=== PATIENT | female | born 1970 | race Caucasian/White ===

== ENCOUNTER 2017-07-17 10:00 | Emergency (ER) | payer MEDICARE, MEDICAID | END 2017-07-17 12:35 | disposition home or self-care (01) | LOC: ERS 10:00 | DX: G40.909 Epilepsy, unspecified, not intractable, without status epilepticus (principal); F41.9 Anxiety disorder, unspecified; F32.9 Major depressive disorder, single episode, unspecified ==

== ENCOUNTER 2019-06-09 12:32 | Emergency (ER) | payer MEDICARE ==
[2019-06-09 14:15] LABS: #Basophils 0.1 thou/uL (0.0-0.2); #Eosinphils 0.1 thou/uL (0.0-0.7); #Lymphocytes 1.3 thou/uL (1.20-3.40); #Monocytes 0.4 thou/uL (0.11-0.59); #Neutrophils 3.1 thou/uL (1.40-6.50); %Basophils 1.2 % (0.0-1.0); %Eosinophils 2.2 % (0.0-10.0); %Lymphocytes 25.5 % (21.0-51.0); %Monocytes 8.5 % (0.0-10.0); %Neutrophils 62.7 % (42.0-75.0); Mean Corpuscular HGB CONC 33.5 g/dL (32.0-36.0); Mean Corpuscular Hemoglobin 28.2 pg (27.0-31.0); Mean Platelet Volume 7.8 fL (7.4-10.4); Platelet Count 150 thou/uL (130-400); RBC Distribution Width 12.1 % (11.5-14.5); Red Blood Cell (RBC) Count 4.61 mill/uL (4.20-5.40); White Blood Cell (WBC) Count 4.9 thou/uL (4.8-10.8)
[2019-06-09 14:38] LABS: ALT (SGPT) 16 U/L (8-55); AST (SGOT) 19 U/L (5-34); Albumin 4.2 g/dL (3.5-5.0); Alkaline Phosphatase 69 U/L (40-110); Anion Gap 12 mmol/L (10-20); BUN (Urea Nitrogen) 10 mg/dL (7.0-18.7); Bilirubin, Total 0.4 mg/dL (0.2-1.2); Calc. Creatinine Clearance 0 mL/min (70-130); Calcium 9.4 mg/dL (7.8-10.44); Carbon Dioxide 27 mmol/L (22-29); Chloride 109 mmol/L (98-107); Estimated GFR-MDRD 83; Globulin 2.7 g/dL (2.4-3.5); Glucose 95 mg/dL (70-105); Potassium 4.3 mmol/L (3.5-5.1); Protein, Total 6.9 g/dL (6.0-8.3); Sodium 144 mmol/L (136-145)
== END 2019-06-09 15:28 | disposition home or self-care (01) ==
LOC: ERS 12:32
DX: R56.9 Unspecified convulsions (principal); K21.9 Gastro-esophageal reflux disease without esophagitis; F41.9 Anxiety disorder, unspecified; F32.9 Major depressive disorder, single episode, unspecified; Z79.899 Other long term (current) drug therapy; Z86.718 Personal history of other venous thrombosis and embolism; Z79.01 Long term (current) use of anticoagulants; Z86.711 Personal history of pulmonary embolism
CPT/HCPCS: 36415; 80053; 80177; 85025; 99284

== ENCOUNTER 2019-11-29 21:24 | Inpatient (IN) | payer MEDICARE ==
--- NOTE | 2019-11-29 22:03 | RAD ---
Chest AP view INDICATION: Altered mental status and history of seizures COMPARISON: Prior chest radiograph dated December 04, 2017 and July 24, 2018. FINDINGS: Lungs: The lungs remain hyperinflated but clear. Cardiac silhouette: The cardiomediastinal silhouette appears within normal limits. Pulmonary vasculature: Normal Pleural spaces: No pleural effusion or pneumothorax is demonstrated. Upper abdomen: No abnormality seen. Osseous structures: No acute osseous abnormality. Additional findings: None. IMPRESSION: No acute cardiopulmonary abnormality.
[2019-11-29 22:15] LABS: #Lymphocytes 0.7 thou/uL (1.20-3.40); #Monocytes 0.3 thou/uL (0.11-0.59); #Neutrophils 7.4 thou/uL (1.40-6.50); %Basophils 0.2 % (0.0-1.0); %Eosinophils 0.2 % (0.0-10.0); %Lymphocytes 7.6 % (21.0-51.0); %Monocytes 3.9 % (0.0-10.0); Mean Corpuscular HGB CONC 33.2 g/dL (32.0-36.0); Mean Corpuscular Hemoglobin 28.6 pg (27.0-31.0); Mean Corpuscular Volume 86.2 fL (78.0-98.0); Mean Platelet Volume 7.9 fL (7.4-10.4); Platelet Count 163 thou/uL (130-400); RBC Distribution Width 12.4 % (11.5-14.5); Red Blood Cell (RBC) Count 4.89 mill/uL (4.20-5.40); White Blood Cell (WBC) Count 8.5 thou/uL (4.8-10.8)
[2019-11-29 22:39] LABS: ALT (SGPT) 61 U/L (8-55); AST (SGOT) 51 U/L (5-34); Acetaminophen Less than 6.0 mcg/mL (10.0-30.0); Albumin 4.2 g/dL (3.5-5.0); Alcohol Less than 10 mg/dL (Less than 10); Alkaline Phosphatase 89 U/L (40-110); Anion Gap 15 mmol/L (10-20); BUN (Urea Nitrogen) 15 mg/dL (7.0-18.7); Bilirubin, Total 0.7 mg/dL (0.2-1.2); Calc. Creatinine Clearance 0 mL/min (70-130); Calcium 9.3 mg/dL (7.8-10.44); Carbon Dioxide 20 mmol/L (22-29); Chloride 109 mmol/L (98-107); Estimated GFR-MDRD 82; Globulin 3.3 g/dL (2.4-3.5); Glucose 129 mg/dL (70-105); Lipase 45 U/L (8-78); Potassium 4.1 mmol/L (3.5-5.1); Protein, Total 7.5 g/dL (6.0-8.3); Salicylate Less than 8.0 mg/dL (15.0-30.0); Sodium 140 mmol/L (136-145)
[2019-11-29 22:42] LABS: Bacteria/HPF 3+ HPF (None Seen); Bilirubin Negative (Negative); Blood, Urine Negative (Negative); Clarity Clear (Clear); Glucose, Urine (Dipstick) Normal (Negative); Leukocyte 500 Leu/uL (Negative); Mucous/LPF 1+ LPF (<2+); Nitrite 2+ (Negative); Protein, Urine (Dipstick) 20 mg/dL (Neg-Trace); Renal Epithelial 0-3 HPF (None Seen); Squamous Epithelial 0-3 HPF (0-3); Urobilinogen Normal mg/dL (Less than 2); WBC/HPF 21-50 HPF (0-3)
[2019-11-29 22:44] LABS: Amphetamine Not Detected (NotDetected); Barbiturates Screen Not Detected (NotDetected); Benzodiazepine Screen Detected (NotDetected); Cocaine Metabolite Screen Not Detected (NotDetected); Medtox Control Line Valid? VALID (VALID); Medtox Reader # READER 4; Methadone Not Detected (NotDetected); Methamphetamine Not Detected (NotDetected); Opiate Screen Not Detected (NotDetected); Oxycodone Screen Not Detected (NotDetected); Phencyclidine (PCP) Not Detected (NotDetected); THC/Cannabinoid Screen Not Detected (NotDetected); Tricyclic Screen Not Detected (NotDetected)
[2019-11-29] MEDS ORDERED: Cefepime 2 GM VIAL ONE (23:13)
[2019-11-29] MEDS ORDERED: Vancomycin 1 GM/200 ML BAG ONE (23:13)
--- NOTE | 2019-11-30 02:53 | PDOC.HHP ---
Hospitalist HPI - History of Present Illness altered mental status History of Present Illness: Patient is a 49 year old female with PMH GERD, chronic PE w/ pleural effusion, TBI, seizure disorder, cerebral demyelinization, brain tumor, DVT, multiple sclerosis who presents to our facility initially on concern for seizure, instead observed to be altered mental status, patient was awake but unable to provide history due to extreme mental cloudiness, she is aox1, no acute distress but can barely make a sentence due to forgetfulness, she has pleasant and conversive affect however. The patient was found sitting on the ground at her home by her family confused and they are concerned that she had a seizure that was not witnessed. They took her to the emergency room. Patient did not return to mental baseline, patient given Ativan prior to transfer. She denies numbness, weakness, chest pain, SOB, dizziness. In ED, there is report that patient stopped taking keppra recently but unable to confirm, UA positive for infectious markers, cultures drawn, patient started on empiric abx and admitted for UTI, sepsis, encephalopathy and r/o seizure. Hospitalist ROS - Review of Systems ROS unobtainable: due to mental status Hospitalist History - Past Medical History Other Medical History: GERD, chronic PE w/ pleural effusion, TBI, seizure disorder, cerebral demyelinization, brain tumor, DVT, multiple sclerosis - Past Surgical History Other Surgical History: craniotomy, brain biopsy - Family History Family History: reports: no pertinent history - Social History Smoking Status: Never smoker Alcohol: reports: None Drugs: reports: none - Exam General Appearance: NAD, awake alert General - other findings: altered mental status Eye: PERRL, anicteric sclera ENT: normocephalic atraumatic, no oropharyngeal lesions, moist mucosa Neck: supple, symmetric, no JVD, no thyromegaly, no lymphadenopathy, no carotid bruit Heart: RRR, no murmur, no gallops, no rubs, normal peripheral pulses Respiratory: CTAB, no wheezes, no rales, no ronchi, normal chest expansion, no tachypnea, normal percussion Gastrointestinal: soft, non-tender, non-distended, normal bowel sounds, no palpable masses, no hepatomegaly, no splenomegaly, no bruit Extremities: no cyanosis, no clubbing, no edema Skin: normal turgor, no lesions, no rashes Neurological: cranial nerve grossly intact, normal sensation to touch, no weakness, no focal deficits, no new deficit Musculoskeletal: normal tone, normal strength, no muscle wasting Psychiatric: normal affect, normal behavior, A&O x 3 Hospitalist Results - Labs Result Diagrams: 11/29/19 22:06 11/29/19 22:06 Lab results: WBC 8.5 thou/uL (4.8-10.8) 11/29/19 22:06 Hgb 14.0 g/dL (12.0-16.0) 11/29/19 22:06 Hct 42.2 % (36.0-47.0) 11/29/19 22:06 MCV 86.2 fL (78.0-98.0) 11/29/19 22:06 Plt Count 163 thou/uL (130-400) 11/29/19 22:06 Neutrophils % 88.0 % (42.0-75.0) H 11/29/19 22:06 Sodium 140 mmol/L (136-145) 11/29/19 22:06 Potassium 4.1 mmol/L (3.5-5.1) 11/29/19 22:06 Chloride 109 mmol/L (98-107) H 11/29/19 22:06 Carbon Dioxide 20 mmol/L (22-29) L 11/29/19 22:06 BUN 15 mg/dL (7.0-18.7) 11/29/19 22:06 Creatinine 0.75 mg/dL (0.6-1.1) 11/29/19 22:06 Glucose 129 mg/dL (70-105) H 11/29/19 22:06 Lactic Acid 1.0 mmol/L (0.5-2.2) 11/29/19 23:19 Calcium 9.3 mg/dL (7.8-10.44) 11/29/19 22:06 Total Bilirubin 0.7 mg/dL (0.2-1.2) 11/29/19 22:06 AST 51 U/L (5-34) H 11/29/19 22:06 ALT 61 U/L (8-55) H 11/29/19 22:06 Alkaline Phosphatase 89 U/L (40-110) 11/29/19 22:06 Troponin I Less than 0.010 ng/mL (< 0.028) 11/29/19 22:06 Serum Total Protein 7.5 g/dL (6.0-8.3) 11/29/19 22:06 Albumin 4.2 g/dL (3.5-5.0) 11/29/19 22:06 Lipase 45 U/L (8-78) 11/29/19 22:06 Urine Ketones Negative mg/dL (Negative) 11/29/19 21:52 Urine Blood Negative (Negative) 11/29/19 21:52 Urine Nitrite 2+ (Negative) A 11/29/19 21:52 Ur Leukocyte Esterase 500 Jabari/uL (Negative) A 11/29/19 21:52 Urine RBC 4-6 HPF (0-3) A 11/29/19 21:52 Urine WBC 21-50 HPF (0-3) A 11/29/19 21:52 Ur Squamous Epith Cells 0-3 HPF (0-3) 11/29/19 21:52 Urine Bacteria 3+ HPF (None Seen) A 11/29/19 21:52 - EKG Interpretation EKG: NSR [address] changes Hospitalist H&P A/P - Plan Plan: Patient is a 49 year old female with PMH GERD, chronic PE w/ pleural effusion, TBI, seizure disorder, cerebral demyelinization, brain tumor, DVT, multiple sclerosis who presents to our facility initially on concern for seizure, instead observed to be altered mental status. 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 - could possibly have been a seizure but not enough info to know, will observe closely on stroke unit and check seizure med levels and order precations, ativan , eeg # GERD - pepcid ordered # chronic PE w/ pleural effusion - continue coumadin, trend INR, pharmacy consult # TBI - noted, resume home seizure medications # seizure disorder - noted, resume home seizure medications # cerebral demyelinization - noted, resume home seizure medications # history of brain tumor - noted, resume home seizure medications # history of DVT - continue coumadin, trend INR, pharmacy consult # multiple sclerosis - noted, resume home seizure medications
[2019-11-30 03:19] VITALS: BMI 25.1
[2019-11-30] MEDS: Sodium Chloride 0.9% 1,000 ML IV SCH ×2 (03:21→09:01)
[2019-11-30] MEDS ORDERED: Morphine 2 MG/ML SYRINGE SLOW IVP PRN (06:08)
[2019-11-30] MEDS ORDERED: Ondansetron PF 4 MG/2 ML Vial IVP PRN (06:08)
[2019-11-30] MEDS ORDERED: hydrALAZINE 20 MG/ML VIAL SLOW IVP PRN (06:08)
[2019-11-30] MEDS ORDERED: cloNIDine 0.1 MG TAB PO PRN (06:08)
[2019-11-30] MEDS ORDERED: Labetalol HCl 100 MG/20 ML VIAL SLOW IVP PRN (06:08)
[2019-11-30] MEDS ORDERED: HYDROcodone/Acetaminophen 5/325 mg Tablet PO PRN (06:08)
[2019-11-30] MEDS ORDERED: Guaifenesin DM 100-10/5 ML UDCUP PO PRN (06:08)
[2019-11-30] MEDS ORDERED: Promethazine HCl 12.5 MG in Sodium Chloride 0.9% 50 ML IVPB PRN (06:08)
[2019-11-30] MEDS ORDERED: Acetaminophen 325 MG TAB PO PRN (06:08)
[2019-11-30] MEDS ORDERED: Sodium Chloride 0.9% 1,000 ML IV SCH (06:15)
[2019-11-30] MEDS ORDERED: Lorazepam 2 MG/ML VIAL SLOW IVP PRN (06:20)
[2019-11-30] MEDS ORDERED: Baclofen 10 MG TAB PO PRN (06:21)
[2019-11-30] MEDS ORDERED: Warfarin Sodium 5 MG TAB PO SCH ×2 (06:30→17:00)
[2019-11-30] MEDS ORDERED: Warfarin Sodium 7.5 MG TAB PO SCH (06:30)
[2019-11-30] MEDS: cefTRIAXone\\ROCEPHIN 1 GM in Sodium Chloride 0.9% 100 ML IVPB SCH (08:41)
[2019-11-30] MEDS: Mycophenolate 250 MG CAP PO SCH ×2 (08:41→21:02)
[2019-11-30] MEDS: Polyethylene Glycol 3350 17 GM Packet PO SCH (08:41)
[2019-11-30] MEDS: Lacosamide 50 mg Tablet PO SCH ×2 (08:42→21:03)
[2019-11-30] MEDS: Famotidine 20 MG TAB PO SCH ×2 (08:42→21:03)
[2019-11-30] MEDS: levETIRAcetam 500 MG TAB PO SCH ×2 (08:42→21:03)
[2019-11-30] MEDS ORDERED: LACOSAMIDE 100 MG PO SCH (09:00)
[2019-11-30] MEDS ORDERED: Non-Formulary Item 1 EACH (Sertraline Hcl [Sertraline Hcl] 50 MG) PO SCH (09:00)
[2019-11-30] MEDS ORDERED: Enoxaparin Sodium 40 MG/0.4 ML SYRINGE SC SCH (09:00)
[2019-11-30 10:51] LABS: INR-International Normal Ratio 1.9; Prothrombin Time 21.3 sec (12.0-14.7)
--- NOTE | 2019-11-30 11:51 | PDOC.HOSPP ---
- Subjective Encounter Date: 11/30/19 Encounter Time: 10:00 Subjective: is working with PT, ambulating in hallway, drags her right side likely from prior brain insult responds well to verbal questions no new weakness, chest pain or abd pain - Objective Vital Signs & Weight: Vital Signs (12 hours) Temp Pulse Pulse Pulse Resp BP BP 11/30/19 11:26 98.7 F 71 22 H 11/30/19 09:00 74 74 117/58 L 119/55 L 11/30/19 08:52 74 77 117/58 L 119/55 L 11/30/19 08:00 11/30/19 07:58 98.9 F 77 14 11/30/19 04:28 98.3 F 73 18 11/30/19 02:32 98.5 F 78 18 11/30/19 02:08 BP Pulse Ox 11/30/19 11:26 118/60 95 11/30/19 09:00 11/30/19 08:52 11/30/19 08:00 94 L 11/30/19 07:58 121/57 L 94 L 11/30/19 04:28 120/55 L 97 11/30/19 02:32 124/65 97 11/30/19 02:08 97 Weight Weight 165 lb 1.6 oz I&O: 11/29/19 11/30/19 12/01/19 06:59 06:59 06:59 Intake Total 500 Output Total 100 Balance 400 Result Diagrams: 11/29/19 22:06 11/29/19 22:06 Hospitalist ROS - Medication Medications: Active Medications Generic Name Dose Route Start Last Admin Trade Name Jennifer PRN Reason Stop Dose Admin Enoxaparin Sodium 40 mg 11/30/19 09:00 11/30/19 08:43 Lovenox SC 40 mg 0900 DAVIS Administration Famotidine 20 mg 11/30/19 09:00 11/30/19 08:42 Pepcid PO 20 mg BID DAVIS Administration Sodium Chloride 1,000 mls @ 125 mls/hr 11/30/19 02:15 11/30/19 09:01 Normal Saline 0.9% IV 11/30/19 12:30 Not Given .Q8H DAVIS Ceftriaxone Sodium 1 gm/ 100 mls @ 200 mls/hr 11/30/19 08:00 11/30/19 08:41 Sodium Chloride IVPB 100 mls Q24HR DAVIS Administration Sodium Chloride 1,000 mls @ 75 mls/hr 11/30/19 06:15 11/30/19 09:01 Normal Saline 0.9% IV 1,000 mls .[id number] DAVIS Administration Lacosamide 100 mg 11/30/19 09:00 11/30/19 08:42 Vimpat PO 100 mg BID DAVIS Administration Levetiracetam 1,250 mg 11/30/19 09:00 11/30/19 08:42 Keppra PO 1,250 mg Q12HR DAVIS Administration Mycophenolate Mofetil 1,000 mg 11/30/19 09:00 11/30/19 08:41 Cellcept PO 1,000 mg BID DAVIS Administration Polyethylene Glycol 17 gm 11/30/19 09:00 11/30/19 08:41 Miralax PO 17 gm DAILY DAVIS Administration Sertraline HCl 50 mg 11/30/19 09:00 11/30/19 08:42 Zoloft PO 50 mg DAILY DAVIS Administration Sodium Chloride 10 ml 11/30/19 09:00 11/30/19 08:43 Flush - Normal Saline IVF 10 ml Q12HR DAVIS Administration - Exam General Appearance: awake alert Eye: PERRL, anicteric sclera ENT: no oropharyngeal lesions, dry oral mucosa Neck: supple, no JVD Heart: RRR, no murmur Respiratory: no wheezes, no rales Gastrointestinal: soft, non-tender, non-distended, normal bowel sounds Extremities: no cyanosis, no edema Neurological: cranial nerve grossly intact, hemiplegia Psychiatric: normal affect, A&O x 3 Hosp A/P (1) Acute metabolic encephalopathy Code(s): G93.41 - METABOLIC ENCEPHALOPATHY Status: Resolved (2) Seizure disorder Code(s): G40.909 - EPILEPSY, UNSP, NOT INTRACTABLE, WITHOUT STATUS EPILEPTICUS Status: Acute (3) Traumatic brain injury Code(s): S06.9X9A - UNSP INTRACRANIAL INJURY W LOC OF UNSP DURATION, INIT Status: Chronic Qualifiers: Encounter type: sequela (4) UTI (urinary tract infection) Status: Acute Qualifiers: Urinary tract infection type: acute cystitis Hematuria presence: without hematuria Qualified Code(s): N30.00 - Acute cystitis without hematuria (5) Multiple sclerosis Code(s): G35 - MULTIPLE SCLEROSIS Status: Chronic (6) Venous thromboembolism Code(s): I82.90 - ACUTE EMBOLISM AND THROMBOSIS OF UNSPECIFIED VEIN Status: Chronic - Plan encephalopathy has resolved, likely due to uti or seizure at home (which is unclear now) continue ceftriaxone, await culture results home dose coumadin for h/o PE/DVT, cellcept and baclofen for h/o MS?, keppra and vimpat, zoloft hemo/neurostable dc plan in am once culture results are available encourage po intake
--- NOTE | 2019-11-30 13:23 | CON ---
NEUROLOGY CONSULTATION DATE OF CONSULTATION: 11/30/2019 REASON FOR CONSULTATION: Altered mental status. HISTORY OF PRESENT ILLNESS: Ms. Martita Sylvester is a 49-year-old female with medical history significant for GERD, chronic PE with pleural effusion, seizure disorder , traumatic brain injury, brain tumor, DVT, multiple sclerosis, presented to the [facility] with concern about seizures secondary to altered mental status. The patient was found sitting on the ground at home by family, confused, and they were concerned she may have had a seizure which was not witnessed, so she was brought to the emergency room, but she did not return to the baseline. The patient denies focal numbness, paresthesias, dizziness, nausea, vomiting, headache, chest pain, shortness of breath, or abdominal pain. Her urinalysis was positive for infection, so she was started on empiric antibiotics and admitted for UTI, sepsis, and altered mental status. REVIEW OF SYSTEMS: Only 10 systems were reviewed and were negative except for pertinent positives mentioned in the HPI. PAST MEDICAL HISTORY: Gastroesophageal reflux disease, chronic PE with pleural effusion, seizure disorder, traumatic brain injury, multiple sclerosis, brain tumor, DVT. PAST SURGICAL HISTORY: Craniotomy and brain biopsy. FAMILY HISTORY: No significant family history. SOCIAL HISTORY: The patient denies smoking, alcohol, illegal drug use. - Objective Vital Signs & Weight: Vital Signs (12 hours) Temp Pulse Pulse Pulse Resp BP BP 11/30/19 11:26 98.7 F 71 22 H 11/30/19 09:00 74 74 117/58 L 119/55 L 11/30/19 08:52 74 77 117/58 L 119/55 L 11/30/19 08:00 11/30/19 07:58 98.9 F 77 14 11/30/19 04:28 98.3 F 73 18 11/30/19 02:32 98.5 F 78 18 11/30/19 02:08 BP Pulse Ox 11/30/19 11:26 118/60 95 11/30/19 09:00 11/30/19 08:52 11/30/19 08:00 94 L 11/30/19 07:58 121/57 L 94 L 11/30/19 04:28 120/55 L 97 11/30/19 02:32 124/65 97 11/30/19 02:08 97 Weight Weight 165 lb 1.6 oz I&O: 11/29/19 11/30/19 12/01/19 06:59 06:59 06:59 Intake Total 500 Output Total 100 Balance 400 Hospitalist ROS - Medication Medications: Active Medications Generic Name Dose Route Start Last Admin Trade Name Jennifer PRN Reason Stop Dose Admin Enoxaparin Sodium 40 mg 11/30/19 09:00 11/30/19 08:43 Lovenox SC 40 mg 0900 DAVIS Administration Famotidine 20 mg 11/30/19 09:00 11/30/19 08:42 Pepcid PO 20 mg BID DAVIS Administration Sodium Chloride 1,000 mls @ 125 mls/hr 11/30/19 02:15 11/30/19 09:01 Normal Saline 0.9% IV 11/30/19 12:30 Not Given .Q8H DAVIS Ceftriaxone Sodium 1 gm/ 100 mls @ 200 mls/hr 11/30/19 08:00 11/30/19 08:41 Sodium Chloride IVPB 100 mls Q24HR DAVIS Administration Sodium Chloride 1,000 mls @ 75 mls/hr 11/30/19 06:15 11/30/19 09:01 Normal Saline 0.9% IV 1,000 mls .[id number] DAVIS Administration Lacosamide 100 mg 11/30/19 09:00 11/30/19 08:42 Vimpat PO 100 mg BID DAVIS Administration Levetiracetam 1,250 mg 11/30/19 09:00 11/30/19 08:42 Keppra PO 1,250 mg Q12HR DAVIS Administration Mycophenolate Mofetil 1,000 mg 11/30/19 09:00 11/30/19 08:41 Cellcept PO 1,000 mg BID DAVIS Administration Polyethylene Glycol 17 gm 11/30/19 09:00 11/30/19 08:41 Miralax PO 17 gm DAILY DAVIS Administration Sertraline HCl 50 mg 11/30/19 09:00 11/30/19 08:42 Zoloft PO 50 mg DAILY DAVIS Administration Sodium Chloride 10 ml 11/30/19 09:00 11/30/19 08:43 Flush - Normal Saline IVF 10 ml Q12HR DAVIS Administration - Exam General Appearance: awake alert Eye: PERRL, anicteric sclera ENT: no oropharyngeal lesions, dry oral mucosa Neck: supple, no JVD Heart: RRR, no murmur Respiratory: no wheezes, no rales Gastrointestinal: soft, non-tender, non-distended, normal bowel sounds Extremities: no cyanosis, no edema Neurological: cranial nerve grossly intact, hemiplegia Psychiatric: normal affect, A&O x 3 NEUROLOGIC: Mental status: The patient is alert and oriented to person only. Cranial nerves 2 through 12 intact. Motor: Muscle tone and bulk are normal. Moving all 4 extremities Right >> Left. Sensory intact. Reflexes 2+ bilaterally. Cerebellar intact. Gait not tested due to the patient's safety reason. LABORATORY DATA: I reviewed the labs which were essentially unremarkable except for a glucose of 129. ASSESSMENT AND PLAN: This is a 49-year-old female with a history significant for seizure disorder,brain mass s/p craniotomy presented with altered mental status. History unclear whether she was postictal versus UTI. Continue home anticonvulsant regimen, observe seizure precautions, neuro checks every 4 hours. Ativan 2 mg IV for seizure greater than 2 minutes. Recommend EEG to rule out ongoing seizure activity and continue home medications. Continue medical management per primary team for UTI and other issues. Consider MRI brain without contrast to rule out acute intracranial process and follow up on brain lesion. PT/OT/Speech. Telemetry. We will continue to follow. Thank you for the consult. Job ID: [id number] [facility]
--- NOTE | 2019-11-30 15:33 | EEG ---
Referring Physician: Rowdy MERRITT EEG # [id number] TEST TYPE: CONTINUOUS EXTENDED VIDEO EEG REPORT: This EEG was performed using 24 channel [employer] video digital EEG machine with 24 disc electrodes. This was an extended 2 hour 5 minutes of inpatient video EEG recording. Digital analysis of the EEG was done with spike and seizure detection which revealed no abnormalities. BACKGROUND: There is a nonsustained posterior background rhythm of 7.5-8 hertz , minimal reactivity seen with eye opening and eye closure. HYPERVENTILATION: No significant response seen with hyperventilation. PHOTIC STIMULATION: No significant response seen with photic stimulation. SLEEP: Drowsiness and sleep are observed. EEG DIAGNOSIS: 1.) Nonsustained posterior background rhythm. CLINICAL INTERPRETATION: THIS EEG IS CONSISTENT WITH MILD GENERALIZED NONSPECIFIC CEREBRAL DYSFUNCTION. NO ICTAL OR INTERICTAL EPILEPTIFORM ABNORMALITIES SEEN DURING THE RECORDING. Assistant Professor Of Psychology: [employer] Repairer: [email or web address]
[2019-12-01 05:16] LABS: #Eosinphils 0.2 thou/uL (0.0-0.7); #Lymphocytes 1.8 thou/uL (1.20-3.40); #Monocytes 0.4 thou/uL (0.11-0.59); #Neutrophils 2.5 thou/uL (1.40-6.50); %Basophils 0.4 % (0.0-1.0); %Eosinophils 4.7 % (0.0-10.0); %Lymphocytes 36.3 % (21.0-51.0); %Monocytes 8.4 % (0.0-10.0); %Neutrophils 50.2 % (42.0-75.0); Hemoglobin 12.2 g/dL (12.0-16.0); Mean Corpuscular HGB CONC 32.8 g/dL (32.0-36.0); Mean Corpuscular Hemoglobin 28.4 pg (27.0-31.0); Mean Corpuscular Volume 86.6 fL (78.0-98.0); Mean Platelet Volume 7.6 fL (7.4-10.4); Platelet Count 140 thou/uL (130-400); RBC Distribution Width 12.2 % (11.5-14.5); Red Blood Cell (RBC) Count 4.29 mill/uL (4.20-5.40); White Blood Cell (WBC) Count 4.9 thou/uL (4.8-10.8)
[2019-12-01 05:18] LABS: INR-International Normal Ratio 1.8; Prothrombin Time 20.8 sec (12.0-14.7)
[2019-12-01 05:36] LABS: Anion Gap 9 mmol/L (10-20); BUN (Urea Nitrogen) 9 mg/dL (7.0-18.7); Calc. Creatinine Clearance 113 mL/min (70-130); Calcium 8.7 mg/dL (7.8-10.44); Carbon Dioxide 25 mmol/L (22-29); Chloride 111 mmol/L (98-107); Estimated GFR-MDRD 86; Glucose 91 mg/dL (70-105); Potassium 3.8 mmol/L (3.5-5.1); Sodium 141 mmol/L (136-145)
[2019-12-01] MEDS: Polyethylene Glycol 3350 17 GM Packet PO SCH (09:17)
[2019-12-01] MEDS: Mycophenolate 250 MG CAP PO SCH ×2 (09:18→21:42)
[2019-12-01] MEDS: Lacosamide 50 mg Tablet PO SCH ×2 (09:18→21:40)
[2019-12-01] MEDS: levETIRAcetam 500 MG TAB PO SCH ×2 (09:18→21:41)
[2019-12-01] MEDS: Famotidine 20 MG TAB PO SCH ×2 (09:18→21:40)
[2019-12-01] MEDS: cefTRIAXone\\ROCEPHIN 1 GM in Sodium Chloride 0.9% 100 ML IVPB SCH (10:08)
--- NOTE | 2019-12-01 11:19 | PDOC.HOSPP ---
- Subjective Encounter Date: 12/01/19 Encounter Time: 09:30 Subjective: awake, eating well have seen her ambulate with PT this morning at bedside, confirms her to be at baseline - Objective Vital Signs & Weight: Vital Signs (12 hours) Temp Pulse Resp BP Pulse Ox 12/01/19 08:00 98.3 F 65 16 111/64 93 L 12/01/19 04:00 98.1 F 74 16 109/68 97 12/01/19 00:00 98.4 F 72 16 121/58 L 96 Weight Weight 165 lb 1.6 oz I&O: 11/30/19 12/01/19 12/02/19 06:59 06:59 06:59 Intake Total 500 1170 420 Output Total 100 250 0 Balance 400 920 420 Result Diagrams: 12/01/19 05:02 12/01/19 05:02 Hospitalist ROS - Medication Medications: Active Medications Generic Name Dose Route Start Last Admin Trade Name Freq PRN Reason Stop Dose Admin Famotidine 20 mg 11/30/19 09:00 12/01/19 09:18 Pepcid PO 20 mg BID DAVIS Administration Ceftriaxone Sodium 1 gm/ 100 mls @ 200 mls/hr 11/30/19 08:00 12/01/19 10:08 Sodium Chloride IVPB 100 mls Q24HR DAVIS Administration Lacosamide 100 mg 11/30/19 09:00 12/01/19 09:18 Vimpat PO 100 mg BID DAVIS Administration Levetiracetam 1,250 mg 11/30/19 09:00 12/01/19 09:18 Keppra PO 1,250 mg Q12HR DAVIS Administration Mycophenolate Mofetil 1,000 mg 11/30/19 09:00 12/01/19 09:18 Cellcept PO 1,000 mg BID DAVIS Administration Polyethylene Glycol 17 gm 11/30/19 09:00 12/01/19 09:17 Miralax PO Not Given DAILY DAVIS Sertraline HCl 50 mg 11/30/19 09:00 12/01/19 09:19 Zoloft PO 50 mg DAILY DAVIS Administration Sodium Chloride 10 ml 11/30/19 09:00 12/01/19 09:19 Flush - Normal Saline IVF 10 ml Q12HR DAVIS Administration Warfarin Sodium 5 mg 11/30/19 17:00 05/15/20 16:36 Coumadin PO 5 mg [id number] [facility] Administration - Exam General Appearance: awake alert Eye: PERRL, anicteric sclera ENT: no oropharyngeal lesions, moist mucosa Neck: supple, no JVD Heart: RRR, no murmur Respiratory: no wheezes, no rales Gastrointestinal: soft, non-tender, non-distended, normal bowel sounds Extremities: no cyanosis, no edema Neurological: hemiplegia Psychiatric: normal affect, A&O x 3 Hosp A/P (1) Acute metabolic encephalopathy Code(s): G93.41 - METABOLIC ENCEPHALOPATHY Status: Resolved (2) Seizure disorder Code(s): G40.909 - EPILEPSY, UNSP, NOT INTRACTABLE, WITHOUT STATUS EPILEPTICUS Status: Acute (3) Traumatic brain injury Code(s): S06.9X9A - UNSP INTRACRANIAL INJURY W LOC OF UNSP DURATION, INIT Status: Chronic Qualifiers: Encounter type: sequela (4) UTI (urinary tract infection) Status: Acute Qualifiers: Urinary tract infection type: acute cystitis Hematuria presence: without hematuria Qualified Code(s): N30.00 - Acute cystitis without hematuria (5) Multiple sclerosis Code(s): G35 - MULTIPLE SCLEROSIS Status: Chronic (6) Venous thromboembolism Code(s): I82.90 - ACUTE EMBOLISM AND THROMBOSIS OF UNSPECIFIED VEIN Status: Chronic - Plan encephalopathy has resolved, likely due to uti or seizure at home (which is unclear now), eeg shows no ongoing seizures. continue ceftriaxone, await culture results (e.coli prelim urine) home dose coumadin for h/o PE/DVT, cellcept and baclofen for h/o MS which is progressive per jeevan mccullough and vimpat, zoloft hemo/neurostable dc plan home when culture results are available encourage po intake
--- NOTE | 2019-12-01 12:06 | EKG ---
Test Reason : Blood Pressure : / mmHG Vent. Rate : 091 BPM Atrial Rate : 091 BPM P-R Int : 158 ms QRS Dur : 088 ms QT Int : 360 ms P-R-T Axes : 057 -22 054 degrees QTc Int : 442 ms Normal sinus rhythm RSR' or QR pattern in V1 suggests right ventricular conduction delay Possible Anteroseptal infarct , age undetermined Abnormal ECG Confirmed by JOE PAINTING ([id number]), digital editor XOCHILT BLACK ([id number]) on 12/01/2019 12:06:04 PM Referred By: Confirmed By:JOE Aguirre
[2019-12-01] MEDS ORDERED: Warfarin Sodium 7.5 MG TAB PO SCH (17:00)
[2019-12-02 04:39] LABS: #Eosinphils 0.2 thou/uL (0.0-0.7); #Lymphocytes 1.5 thou/uL (1.20-3.40); #Monocytes 0.4 thou/uL (0.11-0.59); #Neutrophils 3.2 thou/uL (1.40-6.50); %Basophils 0.2 % (0.0-1.0); %Eosinophils 3.6 % (0.0-10.0); %Lymphocytes 28.4 % (21.0-51.0); %Monocytes 7.8 % (0.0-10.0); Hemoglobin 13.2 g/dL (12.0-16.0); Mean Corpuscular Hemoglobin 28.3 pg (27.0-31.0); Mean Corpuscular Volume 85.7 fL (78.0-98.0); Mean Platelet Volume 7.4 fL (7.4-10.4); Platelet Count 152 thou/uL (130-400); RBC Distribution Width 12.1 % (11.5-14.5); Red Blood Cell (RBC) Count 4.67 mill/uL (4.20-5.40); White Blood Cell (WBC) Count 5.4 thou/uL (4.8-10.8)
[2019-12-02 04:45] LABS: INR-International Normal Ratio 1.6; Prothrombin Time 18.7 sec (12.0-14.7)
[2019-12-02 04:59] LABS: Anion Gap 13 mmol/L (10-20); BUN (Urea Nitrogen) 10 mg/dL (7.0-18.7); Calc. Creatinine Clearance 115 mL/min (70-130); Carbon Dioxide 19 mmol/L (22-29); Chloride 110 mmol/L (98-107); Estimated GFR-MDRD 88; Glucose 94 mg/dL (70-105); Potassium 3.8 mmol/L (3.5-5.1); Sodium 138 mmol/L (136-145)
[2019-12-02 07:50] VITALS: BP 122/60; TEMP 98.1
[2019-12-02] MEDS: cefTRIAXone\\ROCEPHIN 1 GM in Sodium Chloride 0.9% 100 ML IVPB SCH (08:58)
[2019-12-02] MEDS: Polyethylene Glycol 3350 17 GM Packet PO SCH (08:59)
[2019-12-02] MEDS: Lacosamide 50 mg Tablet PO SCH (09:00)
[2019-12-02] MEDS: levETIRAcetam 500 MG TAB PO SCH (09:00)
[2019-12-02] MEDS: Mycophenolate 250 MG CAP PO SCH (09:00)
[2019-12-02] MEDS: Famotidine 20 MG TAB PO SCH (09:00)
--- NOTE | 2019-12-03 10:49 | DIS ---
DATE OF ADMISSION: 11/30/2019 DATE OF DISCHARGE: 12/02/2019 DISCHARGE DIAGNOSES: 1. Seizure disorder. 2. Acute metabolic encephalopathy. 3. Urinary tract infection. 4. Traumatic brain injury. 5. Multiple sclerosis. 6. Venous thromboembolism. DISCHARGE MEDICATIONS: 1. Levaquin 750 mg orally daily for 4 days. 2. Baclofen 5 mg orally t.i.d. as needed for muscle spasms. 3. Lacosamide 100 mg orally twice daily. 4. Keppra 1250 mg orally twice daily. 5. CellCept 1000 mg orally twice daily. 6. Sertraline 50 mg orally daily. 7. Warfarin 5 mg orally daily on Tuesdays, , Fridays, and Tuesday and 7.5 mg orally daily on Tuesday, Tuesday, and Tuesday. 8. Daily vitamin 1 tablet orally. HISTORY OF PRESENT ILLNESS AND HOSPITAL COURSE: The patient is a 49-year-old female with past medical history of GERD, PE, traumatic brain injury, seizure disorder, and progressive multiple sclerosis, who presented to the hospital with altered mental status and concern for seizure. The patient was awake, but unable to provide accurate history due to mental cloudiness. She was found sitting on the ground at home by family in a confused state, and they were concerned that the patient had a seizure that was not witnessed. The patient was given Ativan prior to arrival at the hospital and was confused in the ER. The patient stated that she stopped taking Keppra recently. UA was positive for possible infection. She was admitted to the hospital with impression of altered mental status due to seizure versus UTI. Her encephalopathy resolved within 24 hours. EEG was performed, which did not show any seizure activity. She received IV ceftriaxone during her hospital stay, and her urine culture revealed growth of E coli, which was sensitive to oral antibiotics. Levaquin will be used on discharge due to penicillin allergy. Her home medications of Coumadin, CellCept, baclofen, Keppra, and Vimpat were all continued. At this time, she is stable for discharge. Job ID: [id number]
--- NOTE | 2019-12-04 06:42 | PQF ---
BRAEDENISAÍAS LY ROSALINDA ROSAS [id number] [facility] [place] [id number] CLINICAL DOCUMENTATION CLARIFICATION FORM: POST DISCHARGE Addendum to original discharge summary date: ____ Late entry note date: __ DATE: 12/04/2019 ATTN: ROSALINDA ROSAS Please exercise your independent, professional judgment in responding to the clarification form. Clinical indicators are provided on the bottom of this form for your review Can you please identify the etiology of the patient's diagnosis of metabolic encephalopathy? Etiology:[ ] Due to UTI only [ ] Due to seizure disorder only [ > ] Due to both seizure disorder and UTI [ ] Other (please specify) [ ] Other diagnosis: [ ] Unable to determine For continuity of documentation, please document condition throughout progress notes and discharge summary. Thank You. CLINICAL INDICATORS - SIGNS / SYMPTOMS / LABS "initially on concern for seizure" - 11/29 Dr. Castro "pt did not return to mental baseline, patient given Ativan prior to transfer" - 11/29 Dr. Castro "there is report that the patient stopped taking Keppra recently but unable to confirm" - 11/29 Dr. Castro UTI with metabolic encephalopathy - 11/29 Dr. Castro "could possibly have been a seizure but not enough info to know" - 11/29 Dr. Castro Urine culture:E.coli - Collected 11/28 RISK FACTORS 49 years old - 11/29 Dr. Castro PMHx of traumatic brain injury - 11/29 Dr. Castro seizure disorder - 11/29 Dr. Castro multiple sclerosis - 11/29 Dr. Castro TREATMENTS: Electrophysiology Proc 11/29 Ceftriaxone 2gm IVPB - 11/28 MAR Vancomycin 1mg IVPB - 11/28 MAR Ativan 2mg slow IVP Q20m PRN - 11/29 MAR Levaquin 750mg Oral SEP 19 Urine culture Collected 11/28 (This form is maintained as a part of the permanent medical record) 2014 [employer]. All Rights Reserved [email or web address]
--- NOTE | 2019-12-04 06:44 | PQF ---
BRAEDENISAÍAS LY ROSALINDA ROSAS [id number] [facility] [id number] CLINICAL DOCUMENTATION CLARIFICATION FORM: POST DISCHARGE Addendum to original discharge summary date: ____ Late entry note date: __ DATE: 12/04/2019 ATTN: ROSALINDA ROSAS Please exercise your independent, professional judgment in responding to the clarification form. Clinical indicators are provided on the bottom of this form for your review Please check appropriate box(s) to clarify if the following diagnosis has been ruled in or ruled out: Sepsis [ >] Ruled in diagnosis [ ] Continue to treat [ ] Resolved [ ] Ruled out diagnosis [ ] Cannot rule out diagnosis [ ] Other diagnosis [ ] Unable to determine For continuity of documentation, please document condition throughout progress notes and discharge summary. Thank You. CLINICAL INDICATORS - SIGNS / SYMPTOMS / LABS "treated this patient for sepsis with altered mental status secondary to urinary tract infection" - ED 11/29 "given 30mL/kg IV fluid bolus" - ED 11/29 "admitted for UTI, sepsis, encephalopathy and r/o seizure" - 11/29 Dr. Castro Temp 98.9 F, Pulse 77, RR 22, BP 117/58 - PN 11/29 Dr. Hong Labs WBC: 11/28 - 8.5, 11/30 - 4.9, 12/01 - 5.4 Blood culture:Presumptive Corynebacterium - Collected 11/28 Urine culture:E.coli - Collected 11/28 Labs Lactate: 11/28=1.0 RISK FACTORS 49 years old - HP 11/29 Dr. Castro PMHx of traumatic brain injury - HP 11/29 Dr. Castro seizure disorder - HP 11/29 Dr. Castro multiple sclerosis - HP 11/29 Dr. Castro UTI - HP 11/29 Dr. Aterno TREATMENTS Ceftriaxone 2gm IVPB - 11/28 Vancomycin 1mg IVPB - 11/28 Blood and urine culture Collected 11/28 Levaquin 750mg Oral SEP 19 (This form is maintained as a part of the permanent medical record) 2014 [employer]. All Rights Reserved [email or web address]
== END 2019-12-02 10:07 | disposition home or self-care (01) | DRG 871 ==
LOC: ERS 21:24 → 2SE 11-30 02:22
PROVIDERS: ADMIT Internal Medicine; ATTEND Internal Medicine
DX: A41.9 Sepsis, unspecified organism (principal); G93.41 Metabolic encephalopathy; N39.0 Urinary tract infection, site not specified; G40.909 Epilepsy, unspecified, not intractable, without status epilepticus; K21.9 Gastro-esophageal reflux disease without esophagitis; G35 Multiple sclerosis; F32.9 Major depressive disorder, single episode, unspecified; F41.9 Anxiety disorder, unspecified; Z86.718 Personal history of other venous thrombosis and embolism; Z88.0 Allergy status to penicillin; Z91.09 Other allergy status, other than to drugs and biological substances; Z79.899 Other long term (current) drug therapy; Z87.820 Personal history of traumatic brain injury
CPT/HCPCS: 36415; 51701; 71045; 80048; 80177; 80306; 80307; 80339; 81003; 81015; 83605; 83690; 84484; 85025; 85610; 87040; 87077; 87086; 87186; 93005; 95712; 95816; 95819; 95957; 96365; 96367; A4353; G0480; J0692; J0696; J1650; J3370; J3490; J7517

== ENCOUNTER 2020-04-15 04:02 | Observation (INO) | payer MEDICARE, OTHER ==
[2020-04-15] MEDS ORDERED: Vancomycin 1 GM/200 ML BAG ONE (05:10)
[2020-04-15] MEDS ORDERED: HYDROcodone/Acetaminophen 5/325 mg Tablet PO PRN (08:15)
[2020-04-15] MEDS ORDERED: Ondansetron PF 4 MG/2 ML Vial IVP PRN (08:15)
[2020-04-15] MEDS ORDERED: Acetaminophen 325 MG TAB PO PRN (08:15)
[2020-04-15] MEDS ORDERED: Bisacodyl 5 MG TAB PO PRN (08:15)
--- NOTE | 2020-04-15 08:21 | PDOC.HHP ---
Hospitalist HPI - History of Present Illness AMS History of Present Illness: The patient is a 49 years old female who has a significant past medical history of multiple sclerosis, GERD, TBI, historyof PE, who was transferred from outside facility for altered mental status. Patient was initially presented to outside facility ER with facial droop, she was diagnosed with Churchill's palsy. She was subsequently discharged home on prednisone. She then returned to the same ED with concerned that she may have couple episodes of seizure at home. Patient currently is in post ictal, and not able to provide any meaningful history. Per her at bedside, he reported that she had couple episodes of tonic-clonic type of seizure. It last for about 30 seconds. Initial work-up in the ED, including CT head was unremarkable for acute intracranial process. She was found to have possible UTI. He had been started on IV antibiotic. Hospitalist was asked to admit the patient for further work- up and management. 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, Other (MS, TBI) - Past Surgical History Past Surgical History: reports: Other (Craniotomy) - Family History Family History: reports: no pertinent history - Social History Smoking Status: Never smoker Alcohol: reports: None Drugs: reports: none - Exam General - other findings: pt is altered, lethargic Eye: PERRL ENT: normocephalic atraumatic Neck: supple Heart: RRR Respiratory: CTAB Gastrointestinal: soft Extremities: no cyanosis Skin: normal turgor Neurological - other findings: lethargic, not follow commands Musculoskeletal: generalized weakness Psychiatric: somnolent, lethargic Hospitalist Results - Radiology Interpretation CT scan - head Status: image reviewed by nv Hospitalist H&P A/P - Plan Plan: This is an unfortunate 49 years old female who has significant past medical history of multiple sclerosis, PE, GERD, seizure disorder, who presented to ED with altered mental status. Altered mental status unclear etiology, likely multifactorial including underlying infection, seizure postictal from seizure activities -- Patient will be admitted to stroke unit for further work-up. Will obtain MRI of the brain to r/o acute CVA --Check Keppra level. Patient has been started on antibiotic for possible urinary tract infection. --Will obtain EEG to rule out seizure. Neurology consult UTI --Start Rocephin, follow UCx Seizure disorder --check Keppra leval. check EEG --resume home when able History of multiple sclerosis --supportive cares, resume home med GERD --on PPI History of PE --pt is on Coumadin at home, check INR DVT ppx: pt is Coumadin Code Status: Full
[2020-04-15] MEDS ORDERED: Famotidine/PF 20 mg/2ml Vial ONE ×2 (08:57→08:58)
[2020-04-15] MEDS ORDERED: cefTRIAXone\\ROCEPHIN 1 GM VIAL ONE (08:57)
[2020-04-15 09:19] LABS: Troponin I 0.025 ng/mL (< 0.028)
[2020-04-15] MEDS ORDERED: Baclofen 10 MG TAB PO PRN (13:40)
[2020-04-15] MEDS ORDERED: Lorazepam 0.5 MG TAB PO PRN (13:40)
--- NOTE | 2020-04-15 13:41 | CON ---
NEUROLOGY CONSULTATION DATE OF CONSULTATION: 04/15/2020 REASON FOR CONSULTATION: Altered mental status. HISTORY OF PRESENT ILLNESS: Ms. Martita Sylvester is a 49-year-old female with history significant for multiple sclerosis and seizure disorder, presented with altered mental status. She presented as a transfer from outside facility for altered mental status. She was evaluated at that facility yesterday with facial droop and was diagnosed with Churchill palsy and was discharged on steroids. She later returned to the emergency room with change in a baseline mental status. She was extremely altered and was not following commands. There was also concern about focal weakness, which seems to be resolved by the time she reached our emergency room. The patient is still confused and is unable to provide the history. Head CT was done at the prior facility, which did not reveal any acute intracranial pathology. She was found to have UTI and was started on antibiotics and transferred to our hospital for further management. REVIEW OF SYSTEMS: Unobtainable due to the patient's mental status. PAST MEDICAL HISTORY: Per records, seizure disorder, multiple sclerosis, TBI, history of chronic pulmonary embolism with pleural effusion. PAST SURGICAL HISTORY: Craniotomy and brain biopsy. PSYCHIATRIC HISTORY: Depression, anxiety. SOCIAL HISTORY: There is no documented history of alcohol, illegal drug use. ALLERGIES: DILANTIN, PENICILLIN. HOME MEDICATIONS: 1. Mycophenolate mofetil 500 mg 2 tablets once a day. 2. Vimpat 100 mg b.i.d. 3. Valacyclovir 1000 mg 3 times a day. 4. Prednisone 20 mg 3 tablets once a day. 5. Warfarin 7.5 mg once a day. 6. Ativan mg as needed for anxiety. 7. Baclofen 10 mg 3 times a day. 8. Keppra 500 mg twice a day. 9. Zoloft 50 mg once a day. PHYSICAL EXAMINATION: VITAL SIGNS: Blood pressure 129/61, pulse 91, respiratory rate 18. CVS: Regular rate and rhythm. CHEST: Clear. ABDOMEN: Soft. NECK: Supple. NEUROLOGIC: Mental status; the patient is alert and oriented to person only. She does not follow commands. She does not maintain eye contact. Becomes agitated on asking questions. Cranial nerves 2 through 12 intact. Motor; muscle tone and bulk are normal. Moving all 4 extremities equally and symmetrically. Sensory; withdraws to nailbed pressure bilaterally. Cerebellar, did not cooperate with the exam. Gait deferred due to the patient's safety reasons. DIAGNOSTIC STUDIES: Data reviewed. I reviewed the report of the CT scan from outside facility, which did not reveal any acute intracranial pathology. ASSESSMENT AND PLAN: Ms. Martita Sylvester is a 49-year-old female with history significant for multiple sclerosis and seizure disorder, presented with altered mental status. Altered mental status seems to be multifactorial secondary to infectious etiology, urinary tract infection versus seizure - postictal state. Stroke or TIA is also in the differential. Observe seizure precautions. EEG to rule out ongoing seizure activity. N.p.o. until cleared by Speech. Change the patient's home seizure regimen to IV at this time. Vimpat 100 mg IV q.12 and Keppra increased dose 750 mg IV q.12. Ativan 2 mg IV for seizure greater than 2 minutes. Continue home medications. MRI of the brain to rule out acute intracranial process. 2D echo, carotid dopplers and telemetry. Monitor BP and BG. Start aspirin and tain for seconary stroke prevention. PT/OT/Speech. Continue medical management per primary team. We will continue to follow. Thank you for the consult. Job ID: [id number] MTDD
[2020-04-15] MEDS: cefTRIAXone\\ROCEPHIN 1 GM in Sodium Chloride 0.9% 100 ML IVPB SCH (13:59)
[2020-04-15] MEDS: Famotidine/PF 20 mg/2ml Vial SLOW IVP SCH ×2 (13:59→21:56)
[2020-04-15] MEDS: Sodium Chloride 0.9% 1,000 ML IV SCH ×2 (14:00→22:27)
[2020-04-15 14:24] VITALS: BMI 26.3
[2020-04-15 15:06] LABS: SARS-CoV-2 MS2 Positive; SARS-CoV-2 N Gene Negative; SARS-CoV-2 S Gene Negative; SARS-CoV-2 by NAA Not Detected (NotDetected); SARS-CoV-2 orf1ab Negative
[2020-04-15] MEDS: valACYclovir 500 MG TAB PO SCH ×2 (15:44→21:53)
--- NOTE | 2020-04-15 16:40 | MRI ---
Exam: Brain MRI without contrast HISTORY: History of seizure. Altered mental status. COMPARISON: 09/12/2016 FINDINGS: Calvarial marrow signal intensity: Appropriate T1 signal Gradient echo sequence: No hemorrhage Brain parenchyma: Stable encephalomalacia and gliosis involving the left occipital, parietal and post erior frontal lobe due to remote insult. There is associated T2 and FLAIR hyperintensities. There is encephalomalacia and gliosis involving the right parietal lobe. Restricted diffusion: Central arterial flow voids are maintained. Absent restricted diffusion White matter signal intensities:Stable T2, FLAIR white matter hyperintensities. Sinuses: Mucosal thickening of the paranasal sinuses. IMPRESSION: 1. Limited evaluation due to motion degradation despite repeat imaging. Stable encephalomalacia and g liosis involving the posterior left and right cerebrum. 2. Absent restricted diffusion. No acute infarct.
[2020-04-15] MEDS: Warfarin Sodium 5 MG TAB PO SCH (17:21)
[2020-04-15] MEDS: Lacosamide 50 mg Tablet PO SCH (21:53)
[2020-04-15] MEDS: Mycophenolate 250 MG CAP PO SCH (21:53)
[2020-04-15] MEDS: levETIRAcetam 500 MG TAB PO SCH (21:58)
[2020-04-16 05:18] LABS: #Eosinphils 0.1 thou/uL (0.0-0.7); #Lymphocytes 1.9 thou/uL (1.20-3.40); #Monocytes 0.3 thou/uL (0.11-0.59); #Neutrophils 3.1 thou/uL (1.40-6.50); %Basophils 0.5 % (0.0-1.0); %Lymphocytes 35.6 % (21.0-51.0); %Monocytes 5.8 % (0.0-10.0); %Neutrophils 56.1 % (42.0-75.0); Hemoglobin 11.9 g/dL (12.0-16.0); Mean Corpuscular HGB CONC 33.9 g/dL (32.0-36.0); Mean Corpuscular Hemoglobin 28.5 pg (27.0-31.0); Mean Corpuscular Volume 83.9 fL (78.0-98.0); Mean Platelet Volume 7.5 fL (7.4-10.4); Platelet Count 133 thou/uL (130-400); RBC Distribution Width 12.3 % (11.5-14.5); Red Blood Cell (RBC) Count 4.17 mill/uL (4.20-5.40); White Blood Cell (WBC) Count 5.5 thou/uL (4.8-10.8)
[2020-04-16 05:20] LABS: Prothrombin Time 31.5 sec (12.0-14.7)
[2020-04-16 05:37] LABS: Anion Gap 10 mmol/L (10-20); BUN (Urea Nitrogen) 10 mg/dL (7.0-18.7); Calc. Creatinine Clearance 122 mL/min (70-130); Calcium 8.2 mg/dL (7.8-10.44); Carbon Dioxide 23 mmol/L (22-29); Chloride 111 mmol/L (98-107); Estimated GFR-MDRD 89; Glucose 98 mg/dL (70-105); Potassium 3.6 mmol/L (3.5-5.1); Sodium 140 mmol/L (136-145)
--- NOTE | 2020-04-16 08:48 | ULT ---
CAROTID DOPPLER: INDICATION: Mental status change. Seizure. TECHNIQUE: Ultrasound and Doppler studies performed on the extracranial carotid arteries with color Doppler, spe ctral analysis, and velocity recordings. FINDINGS: Ultrasound images show minimal echogenic plaque. Velocity recordings are within normal range with no evidence of hemodynamically significant stenosis. The vertebral arteries show antegrade flow. IMPRESSION: 1. Minimal echogenic plaque in the carotid arteries by ultrasound. 2. No evidence of stenosis by Doppler velocity. POS: AGW
--- NOTE | 2020-04-16 09:04 | EEG ---
DATE OF SERVICE: 04/15/2020 ATTENDING PHYSICIAN: Celeste Perkins MD This EEG was performed using 24-channel Orthocon video digital EEG machine with 24-disk electrodes. This was an extended 2 hours 6 minutes of inpatient video EEG recording. Digital analysis of the EEG was done for spike and seizure detection, which revealed no abnormalities. BACKGROUND: Posterior background rhythm was not observed. HYPERVENTILATION: Not performed. PHOTIC STIMULATION: No significant response seen with photic stimulation. SLEEP: Drowsiness and sleep are observed. EEG DIAGNOSES: 1. Intermittent irregular theta activity seen throughout the recording. 2. Absence of posterior background rhythm. CLINICAL INTERPRETATION: This EEG is consistent with moderate generalized nonspecific cerebral dysfunction. Job ID: [id number]
[2020-04-16] MEDS: cefTRIAXone\\ROCEPHIN 1 GM in Sodium Chloride 0.9% 100 ML IVPB SCH (10:23)
[2020-04-16] MEDS: Famotidine/PF 20 mg/2ml Vial SLOW IVP SCH ×2 (10:24→21:08)
[2020-04-16] MEDS: Mycophenolate 250 MG CAP PO SCH ×2 (10:26→21:08)
[2020-04-16] MEDS: valACYclovir 500 MG TAB PO SCH ×3 (10:26→21:11)
[2020-04-16] MEDS: predniSONE 20 MG TAB PO SCH (10:27)
[2020-04-16] MEDS: levETIRAcetam 500 MG TAB PO SCH ×2 (10:27→21:08)
[2020-04-16] MEDS: Lacosamide 50 mg Tablet PO SCH ×2 (10:30→21:08)
--- NOTE | 2020-04-16 12:29 | PDOC.NEUPN ---
- Subjective Encounter Date: 04/16/20 Subjective: Patient feels much better today. She is calm and cooperative and alert and oriented to person place and time. No further seizures reported since admission. EEG negative for seizure activity and MRI brain did not reveal any acute intracranial changes. - Objective Vital Signs & Weight: Vital Signs (12 hours) Temp Pulse Pulse Pulse Resp BP BP 04/16/20 08:25 74 72 100/76 112/74 04/16/20 07:59 98.1 F 70 18 04/16/20 04:00 98.7 F 70 18 BP Pulse Ox 04/16/20 08:25 04/16/20 07:59 143/77 H 95 04/16/20 04:00 127/70 95 Weight Weight 173 lb I&O: 04/15/20 04/16/20 04/17/20 06:59 06:59 06:59 Intake Total 3090 476 Output Total 300 Balance 2790 476 Result Diagrams: 04/16/20 04:51 04/16/20 04:51 Radiology Reviewed by me: Yes EKG Reviewed by me: Yes ROS - Review of Systems Constitutional: denies: fever, chills, sweats, weakness, malaise, other Eyes: denies: pain, vision change, conjunctivae inflammation, eyelid inflammation, redness, other ENT: denies: ear pain, ear discharge, nose pain, nose discharge, nose congestion, mouth pain, mouth swelling, throat pain, throat swelling, other Respiratory: denies: cough, dry, shortness of breath, hemoptysis, SOB with excertion, pleuritic pain, sputum, wheezing, other Gastrointestinal: denies: nausea, vomiting, abdominal pain, diarrhea, constipation, melena, hematochezia, other Musculoskeletal: denies: neck pain, shoulder pain, arm pain, back pain, hand pain, leg pain, foot pain, other Neurological: reports: weakness, numbness, incoordination, confusion, seizures. denies: change in speech, other All Systems: All other systems reviewed; all pertinent +/- noted in HPI/Subj - Medication Medications: Active Medications Generic Name Dose Route Start Last Admin Trade Name Freq PRN Reason Stop Dose Admin Famotidine 20 mg 04/15/20 09:00 04/16/20 10:24 Famotidine/Pf 20 Mg/2ml Vial SLOW IVP 20 mg Q12HR DAVIS Administration Sodium Chloride 1,000 mls @ 75 mls/hr 04/15/20 08:15 04/15/20 22:27 Normal Saline 0.9% IV 1,000 mls .[id number] DAVIS Administration Ceftriaxone Sodium 1 gm/ 100 mls @ 200 mls/hr 04/15/20 09:00 04/16/20 10:23 Sodium Chloride IVPB 100 mls Q24HR DAVIS Administration Lacosamide 100 mg 04/15/20 21:00 04/16/20 10:30 Lacosamide 50 Mg Tablet PO 100 mg BID DAVIS Administration Levetiracetam 1,250 mg 04/15/20 21:00 04/16/20 10:27 Levetiracetam 500 Mg Tab PO 1,250 mg Q12HR DAVIS Administration Mycophenolate Mofetil 1,000 mg 04/15/20 21:00 04/16/20 10:26 Mycophenolate 250 Mg Cap PO 1,000 mg BID DAVIS Administration Prednisone 60 mg 04/16/20 09:00 04/16/20 10:27 Prednisone 20 Mg Tab PO 60 mg DAILY DAVIS Administration Sodium Chloride 10 ml 04/15/20 09:00 04/16/20 10:30 Flush - Normal Saline 10 Ml Syringe IVF Not Given Q12HR DAVIS Valacyclovir HCl 1,000 mg 04/15/20 15:00 04/16/20 10:26 Valacyclovir 500 Mg Tab PO 1,000 mg TID DAVIS Administration Warfarin Sodium 5 mg 04/15/20 17:00 04/15/20 17:21 Warfarin Sodium 5 Mg Tab PO 5 mg SuTuThFr@1700 DAVIS Administration - Exam General Appearance: awake alert Eye: PERRL ENT: normocephalic atraumatic Neck: supple Respiratory: CTAB Cardiovascular: RRR Gastrointestinal: soft Skin: normal turgor Neurological: no new deficit, facial droop, hemiplegia, speech deficit Musculoskeletal: no muscle wasting PSYCH: normal affect, normal behavior, A&O x 3, oriented to person, oriented to place, oriented to time Results - Labs Result Diagrams: 04/16/20 04:51 04/16/20 04:51 Lab results: WBC 5.5 thou/uL (4.8-10.8) 04/16/20 04:51 Hgb 11.9 g/dL (12.0-16.0) L 04/16/20 04:51 Hct 35.0 % (36.0-47.0) L 04/16/20 04:51 MCV 83.9 fL (78.0-98.0) 04/16/20 04:51 Plt Count 133 thou/uL (130-400) 04/16/20 04:51 Neutrophils % 56.1 % (42.0-75.0) 04/16/20 04:51 ESR Westergren 2 mm/hr (Less than 20) 04/15/20 08:46 Sodium 140 mmol/L (136-145) 04/16/20 04:51 Potassium 3.6 mmol/L (3.5-5.1) 04/16/20 04:51 Chloride 111 mmol/L (98-107) H 04/16/20 04:51 Carbon Dioxide 23 mmol/L (22-29) 04/16/20 04:51 BUN 10 mg/dL (7.0-18.7) 04/16/20 04:51 Creatinine 0.70 mg/dL (0.6-1.1) 04/16/20 04:51 Glucose 98 mg/dL (70-105) 04/16/20 04:51 Calcium 8.2 mg/dL (7.8-10.44) 04/16/20 04:51 Troponin I 0.025 ng/mL (< 0.028) 04/15/20 08:46 C-Reactive Protein Less than 0.50 mg/dL (= or < 0.5) 04/15/20 08:46 - Radiology Interpretation MRI - head Status: image reviewed by me, report reviewed by me Additional Comment: MRI brain showed encephalomalacia in the right and left cerebrum. And also gliosis. PN A/P (1) Seizure disorder Code(s): G40.909 - EPILEPSY, UNSP, NOT INTRACTABLE, WITHOUT STATUS EPILEPTICUS Status: Acute (2) UTI (urinary tract infection) Status: Acute Qualifiers: Urinary tract infection type: acute cystitis Hematuria presence: without hematuria Qualified Code(s): N30.00 - Acute cystitis without hematuria (3) Diabetes mellitus type 2 in nonobese Code(s): E11.9 - TYPE 2 DIABETES MELLITUS WITHOUT COMPLICATIONS Status: Acute (4) Epilepsy Code(s): G40.909 - EPILEPSY, UNSP, NOT INTRACTABLE, WITHOUT STATUS EPILEPTICUS Status: Chronic (5) Multiple sclerosis Code(s): G35 - MULTIPLE SCLEROSIS Status: Chronic (6) Traumatic brain injury Code(s): S06.9X9A - UNSP INTRACRANIAL INJURY W LOC OF UNSP DURATION, INIT Status: Chronic Qualifiers: Encounter type: sequela - Plan Daily Plan: PT/OT, speech therapy, DVT proph w/SCDs 49-year-old female with a history significant for traumatic brain injury, seizure disorder, and multiple sclerosis presented with breakthrough seizures. Most likely provoked seizure in the setting of a UTI. No further seizures reported since admission and home doses of seizure medications resumed and patient is being treated for UTI. Altered mental status is also resolved this morning. EEG reviewed and was negative for ongoing seizure activity. MRI brain reviewed which was negative for acute intracranial pathology. Neurochecks every 4 hours. Continue seizure medications Keppra 1250 mg p.o. twice daily. Vimpat 100 mg p.o. twice daily Observe seizure precautions. Ativan 2 mg IV for seizure greater than 2 minutes. Continue home medications. Continue medical management per primary team. Plan discussed with the patient, nursing staff, during MDR rounds and with the primary attending Dr. Cochran.
[2020-04-16] MEDS: Sodium Chloride 0.9% 1,000 ML IV SCH (14:11)
--- NOTE | 2020-04-16 15:38 | PDOC.HOSPP ---
- Subjective Subjective: Examined at bedside. Her mental status appeared to be return to baseline. No further seizure activity noted overnight. Her urine culture is pending. She is currently is on Rocephin empirically. MRI was negative for acute CVA. Appreciate neurology input. - Objective Vital Signs & Weight: Vital Signs (12 hours) Temp Pulse Pulse Pulse Resp BP BP 04/16/20 08:25 74 72 100/76 112/74 04/16/20 07:59 98.1 F 70 18 04/16/20 04:00 98.7 F 70 18 BP Pulse Ox 04/16/20 08:25 04/16/20 07:59 143/77 H 95 04/16/20 04:00 127/70 95 Weight Weight 173 lb I&O: 04/15/20 04/16/20 04/17/20 06:59 06:59 06:59 Intake Total 3090 476 Output Total 300 Balance 2790 476 Result Diagrams: 04/16/20 04:51 04/16/20 04:51 Radiology Reviewed by me: Yes EKG Reviewed by me: Yes Hospitalist ROS - Medication Medications: Active Medications Generic Name Dose Route Start Last Admin Trade Name Freq PRN Reason Stop Dose Admin Famotidine 20 mg 04/15/20 09:00 04/16/20 10:24 Famotidine/Pf 20 Mg/2ml Vial SLOW IVP 20 mg Q12HR DAVIS Administration Sodium Chloride 1,000 mls @ 75 mls/hr 04/15/20 08:15 04/16/20 14:11 Normal Saline 0.9% IV 1,000 mls .[id number] DAVIS Administration Ceftriaxone Sodium 1 gm/ 100 mls @ 200 mls/hr 04/15/20 09:00 04/16/20 10:23 Sodium Chloride IVPB 100 mls Q24HR DAVIS Administration Lacosamide 100 mg 04/15/20 21:00 04/16/20 10:30 Lacosamide 50 Mg Tablet PO 100 mg BID DAVIS Administration Levetiracetam 1,250 mg 04/15/20 21:00 04/16/20 10:27 Levetiracetam 500 Mg Tab PO 1,250 mg Q12HR DAVIS Administration Mycophenolate Mofetil 1,000 mg 04/15/20 21:00 04/16/20 10:26 Mycophenolate 250 Mg Cap PO 1,000 mg BID DAVIS Administration Prednisone 60 mg 04/16/20 09:00 04/16/20 10:27 Prednisone 20 Mg Tab PO 60 mg DAILY DAVIS Administration Sodium Chloride 10 ml 04/15/20 09:00 04/16/20 10:30 Flush - Normal Saline 10 Ml Syringe IVF Not Given Q12HR DAVIS Valacyclovir HCl 1,000 mg 04/15/20 15:00 04/16/20 14:11 Valacyclovir 500 Mg Tab PO 1,000 mg TID DAVIS Administration Warfarin Sodium 5 mg 04/15/20 17:00 04/15/20 17:21 Warfarin Sodium 5 Mg Tab PO 5 mg SuTuThFr@1700 DAVIS Administration - Exam General Appearance: NAD Eye: PERRL ENT: normocephalic atraumatic Neck: supple Heart: RRR Respiratory: CTAB Gastrointestinal: soft, non-tender Extremities: no cyanosis Skin: normal turgor Neurological: facial droop Musculoskeletal: normal tone Psychiatric: normal affect, oriented to time Hosp A/P - Plan Assessment/Plan: This is an unfortunate 49 years old female who has significant past medical history of multiple sclerosis, PE, GERD, seizure disorder, who presented to ED with altered mental status. Altered mental status unclear etiology, likely multifactorial including underlying infection, seizure postictal from seizure activities --no evidence of acute CVA on MRI, likely post-ictal from seizure activity. EEG reviewed by neurology --cont current AED. monitor for seizures. treat underlying infection --appreciate Dr. Perkins --MS returned to baseline UTI --Cont Rocephin, follow UCx - pending Seizure disorder --resumed home seiuzre medication History of multiple sclerosis --supportive cares, resume home med GERD --on PPI History of PE --pt is on Coumadin at home, INR 3 DVT ppx: pt is Coumadin Code Status: Full
[2020-04-16] MEDS ORDERED: Warfarin Sodium 7.5 MG TAB PO SCH (17:00)
[2020-04-16] MEDS: Tetrahydrozoline 0.05% OPTH 15 ML BOT EA EYE SCH (21:07)
[2020-04-17] MEDS: valACYclovir 500 MG TAB PO SCH ×2 (09:34→16:16)
[2020-04-17] MEDS: Mycophenolate 250 MG CAP PO SCH (09:34)
[2020-04-17] MEDS: levETIRAcetam 500 MG TAB PO SCH (09:35)
[2020-04-17] MEDS: predniSONE 20 MG TAB PO SCH (09:37)
[2020-04-17] MEDS: Lacosamide 50 mg Tablet PO SCH (09:37)
[2020-04-17] MEDS: Famotidine/PF 20 mg/2ml Vial SLOW IVP SCH (09:38)
[2020-04-17] MEDS: Tetrahydrozoline 0.05% OPTH 15 ML BOT EA EYE SCH (09:38)
[2020-04-17] MEDS: cefTRIAXone\\ROCEPHIN 1 GM in Sodium Chloride 0.9% 100 ML IVPB SCH (09:39)
[2020-04-17 14:08] LABS: INR-International Normal Ratio 2.5; Prothrombin Time 27.3 sec (12.0-14.7)
--- NOTE | 2020-04-17 14:08 | PDOC.NEUPN ---
- Subjective Encounter Date: 04/17/20 Subjective: Patient oriented to person place and time. No further seizures reported since admission. - Objective Vital Signs & Weight: Vital Signs (12 hours) Temp Pulse Resp BP Pulse Ox 04/17/20 11:38 97.9 F 73 16 129/74 96 04/17/20 07:49 98.6 F 64 16 125/64 95 04/17/20 03:26 97.0 F L 65 16 135/79 96 Weight Weight 173 lb I&O: 04/16/20 04/17/20 04/18/20 06:59 06:59 06:59 Intake Total 3090 1087 240 Output Total 300 505 Balance 2790 582 240 Result Diagrams: 04/16/20 04:51 04/16/20 04:51 Radiology Reviewed by me: Yes EKG Reviewed by me: Yes ROS - Review of Systems Constitutional: denies: fever, chills, sweats, weakness, malaise, other Eyes: denies: pain, vision change, conjunctivae inflammation, eyelid inflammation, redness, other ENT: denies: ear pain, ear discharge, nose pain, nose discharge, nose congestion, mouth pain, mouth swelling, throat pain, throat swelling, other Respiratory: denies: cough, dry, shortness of breath, hemoptysis, SOB with excertion, pleuritic pain, sputum, wheezing, other Cardiovascular: denies: no pertinent history, AFIB, CAD, CHF, HTN, ME, Syncope, Hyperlipidemia, Mitral valve stenosis, Aortic stenosis, Valve insufficiency, Pulmonary hypertension, Other Gastrointestinal: denies: nausea, vomiting, abdominal pain, diarrhea, constipation, melena, hematochezia, other Genitourinary: denies: dysuria, frequency, incontinence, hematuria, retention, other Musculoskeletal: denies: neck pain, shoulder pain, arm pain, back pain, hand pain, leg pain, foot pain, other Skin: denies: rash, lesions, ainsley, bruising, other Neurological: reports: weakness, numbness, incoordination. denies: change in speech, confusion, seizures, other - Medication Medications: Active Medications Generic Name Dose Route Start Last Admin Trade Name Freq PRN Reason Stop Dose Admin Famotidine 20 mg 04/15/20 09:00 04/17/20 09:38 Famotidine/Pf 20 Mg/2ml Vial SLOW IVP 20 mg Q12HR DAVIS Administration Ceftriaxone Sodium 1 gm/ 100 mls @ 200 mls/hr 04/15/20 09:00 04/17/20 09:39 Sodium Chloride IVPB 100 mls Q24HR DAVIS Administration Lacosamide 100 mg 04/15/20 21:00 04/17/20 09:37 Lacosamide 50 Mg Tablet PO 100 mg BID ADVIS Administration Levetiracetam 1,250 mg 04/15/20 21:00 04/17/20 09:35 Levetiracetam 500 Mg Tab PO 1,250 mg Q12HR DAVIS Administration Mycophenolate Mofetil 1,000 mg 04/15/20 21:00 04/17/20 09:34 Mycophenolate 250 Mg Cap PO 1,000 mg BID DAVIS Administration Prednisone 60 mg 04/16/20 09:00 04/17/20 09:37 Prednisone 20 Mg Tab PO 60 mg DAILY DAVIS Administration Sodium Chloride 10 ml 04/15/20 09:00 04/17/20 09:38 Flush - Normal Saline 10 Ml Syringe IVF 10 ml Q12HR DAVIS Administration Tetrahydrozoline HCl 2 drop 04/16/20 21:00 04/17/20 09:38 Tetrahydrozoline 0.05% Opth 15 Ml Bot EA EYE 2 drop BID DAVIS Administration Valacyclovir HCl 1,000 mg 04/15/20 15:00 04/17/20 09:34 Valacyclovir 500 Mg Tab PO 1,000 mg TID DAVIS Administration Warfarin Sodium 5 mg 04/15/20 17:00 04/15/20 17:21 Warfarin Sodium 5 Mg Tab PO 5 mg [id number] DAVIS Administration Warfarin Sodium 7.5 mg 04/16/20 17:00 04/16/20 18:08 Warfarin Sodium 7.5 Mg Tab PO 7.5 mg [id number] DAVIS Administration - Exam General Appearance: awake alert Eye: PERRL ENT: normocephalic atraumatic Neck: supple Respiratory: CTAB Cardiovascular: RRR Gastrointestinal: soft Extremities: no cyanosis Skin: normal turgor Neurological: no new deficit, facial droop Musculoskeletal: normal tone PSYCH: normal affect, normal behavior, A&O x 3 Results - Labs Result Diagrams: 04/16/20 04:51 04/16/20 04:51 Lab results: WBC 5.5 thou/uL (4.8-10.8) 04/16/20 04:51 Hgb 11.9 g/dL (12.0-16.0) L 04/16/20 04:51 Hct 35.0 % (36.0-47.0) L 04/16/20 04:51 MCV 83.9 fL (78.0-98.0) 04/16/20 04:51 Plt Count 133 thou/uL (130-400) 04/16/20 04:51 Neutrophils % 56.1 % (42.0-75.0) 04/16/20 04:51 ESR Westergren 2 mm/hr (Less than 20) 04/15/20 08:46 Sodium 140 mmol/L (136-145) 04/16/20 04:51 Potassium 3.6 mmol/L (3.5-5.1) 04/16/20 04:51 Chloride 111 mmol/L (98-107) H 04/16/20 04:51 Carbon Dioxide 23 mmol/L (22-29) 04/16/20 04:51 BUN 10 mg/dL (7.0-18.7) 04/16/20 04:51 Creatinine 0.70 mg/dL (0.6-1.1) 04/16/20 04:51 Glucose 98 mg/dL (70-105) 04/16/20 04:51 Calcium 8.2 mg/dL (7.8-10.44) 04/16/20 04:51 Troponin I 0.025 ng/mL (< 0.028) 04/15/20 08:46 C-Reactive Protein Less than 0.50 mg/dL (= or < 0.5) 04/15/20 08:46 - EKG Interpretation EKG: Normal sinus rhythm - Radiology Interpretation MRI - head Status: image reviewed by me, report reviewed by me Additional Comment: No acute intracranial pathology PN A/P (1) Seizure disorder Code(s): G40.909 - EPILEPSY, UNSP, NOT INTRACTABLE, WITHOUT STATUS EPILEPTICUS Status: Acute (2) UTI (urinary tract infection) Status: Acute Qualifiers: Urinary tract infection type: acute cystitis Hematuria presence: without hematuria Qualified Code(s): N30.00 - Acute cystitis without hematuria (3) Diabetes mellitus type 2 in nonobese Code(s): E11.9 - TYPE 2 DIABETES MELLITUS WITHOUT COMPLICATIONS Status: Acute (4) Epilepsy Code(s): G40.909 - EPILEPSY, UNSP, NOT INTRACTABLE, WITHOUT STATUS EPILEPTICUS Status: Chronic (5) Multiple sclerosis Code(s): G35 - MULTIPLE SCLEROSIS Status: Chronic (6) Traumatic brain injury Code(s): S06.9X9A - UNSP INTRACRANIAL INJURY W LOC OF UNSP DURATION, INIT Status: Chronic Qualifiers: Encounter type: sequela - Plan Daily Plan: PT/OT, speech therapy, DVT proph w/SCDs 49-year-old female with a history significant for traumatic brain injury, seizure disorder, and multiple sclerosis presented with breakthrough seizures. Most likely provoked seizure in the setting of a UTI. No further seizures reported since admission Altered mental status resolved and patient is back to her baseline. EEG reviewed and was negative for ongoing seizure activity. MRI brain reviewed which was negative for acute intracranial pathology. Neurochecks every 4 hours. Continue seizure medications regimen Keppra 1250 mg p.o. twice daily. Vimpat 100 mg p.o. twice daily Observe seizure precautions. Ativan 2 mg IV for seizure greater than 2 minutes. Continue home medications. Continue medical management per primary team. Plan discussed with the patient, nursing staff, and during MDR rounds
--- NOTE | 2020-04-17 14:42 | DIS ---
DATE OF ADMISSION: 04/15/2020 DATE OF DISCHARGE: 04/17/2020 DISCHARGE DIAGNOSES: 1. Altered mental status, likely secondary to postictal seizure activity. 2. Urinary tract infection. 3. Seizure disorder. 4. History of multiple sclerosis. 5. Gastroesophageal reflux disease. 6. History of PE, on Coumadin. CONSULTATIONS: Neurology, Dr. Perkins. PROCEDURE: EEG. This EEG is consistent with moderate generalized nonspecific cerebral dysfunction. LABORATORY DATA: WBC of 5.5, hemoglobin 11.9, hematocrit 35.0, platelets 133. INR 3.0. Chemistry; sodium 140, potassium 3.6, chloride 111, carbon dioxide 23, BUN 10, creatinine 0.7. Troponins negative. CRP less than 0.5. Prolactin 24.7. Keppra level 22.8. COVID PCR was negative. Urine cultures, no growth x48 hours. IMAGING STUDY: Carotid Doppler study, minimal echogenic plaque in the carotid artery by ultrasound. No evidence of stenosis. Brain MRI, limited evaluation due to motion degradation despite repeat imaging, stable encephalomalacia and gliosis involving the posterior left and right cerebrum, absence of restricted diffusions. No acute infarct. 2D echo showed EF of 60% to 65%, normal RV size and function, otherwise unremarkable echo. HISTORY OF PRESENT ILLNESS AND BRIEF HOSPITAL COURSE: The patient is a pleasant 49-year-old female, who has significant past medical history of multiple sclerosis, TBI, GERD, history of PE, on Coumadin, who was transferred from outside facilities for altered mental status. The patient initially presented to outside facilities ER with complaint of facial droop. She was diagnosed with [place] palsy and subsequently discharged home on prednisone. This was reported by her later that day, she developed a couple of episodes of seizure, tonic-clonic activities. She was subsequently brought back into the ED, initial CT head was negative for acute intracranial process. She was subsequently transferred to [place] [facility] for further evaluation. The patient was admitted to Hospitalist Service. She was monitored in Stroke Unit, on tele. There was no evidence of arrhythmia. She then underwent stroke workup including carotid Doppler, 2D echo, MRI of the brain was negative. The results are noted above. Her antiepileptic medication was resumed. She had no further seizure activities in the hospital. She was found to have urinary tract infection. She was started on Rocephin on admission. Her culture came back negative. No growth after 48 hours. Antibiotic was discontinued after she completed 3-day of IV antibiotics. The patient was seen by Neurology, Dr. Perkins, who recommended EEG. The results are noted above. No change in her home medication at this time. She is back to her baseline. The patient requests to be discharged home. The patient is cleared to discharge from Neurology standpoint. DISPOSITION: The patient is stable to discharge home. ACTIVITY: As tolerated. DIET: Coumadin friendly diet. FOLLOWUP CARE: The patient to follow up with her PCP in 1 to 2 weeks and follow up with Neurology as an outpatient for ongoing management of her neurologic disorders. PHYSICAL EXAMINATION: VITAL SIGNS: Temperature 97.7, blood pressure 129/76, respiratory rate 16, she is saturating 96% on room air, pulse 73. GENERAL APPEARANCE: The patient appears to be comfortable. She is not in acute distress. HEENT: Normocephalic, atraumatic. Mucous membranes moist. NECK: Supple. No lymphadenopathy. No JVD. CARDIOVASCULAR: Regular rate and rhythm. S1, S2 noted. No murmur. PULMONOLOGY: Clear to auscultation bilaterally. ABDOMEN: Soft, nontender, nondistended. Positive bowel sounds. MUSCULOSKELETAL: No joint pain or tenderness. No lower extremity edema. NEUROLOGIC: The patient had a left-sided facial droop. Otherwise, no focal deficit. PSYCHIATRIC: The patient is alert, oriented x3 with normal affect. DISCHARGE MEDICATIONS: No change in her home medications. She will be continued with all her home medications includin. Keppra 1250 mg q.12h. 2. Baclofen 5 mg t.i.d. for spasm. 3. CellCept 500 mg tablet 2 tablets b.i.d. 4. Lorazepam 0.5 mg p.o. daily p.r.n. 5. Multivitamin supplement 1 tablet p.o. daily. 6. Prednisone 20 mg tablet 3 tablets daily for 5 days to complete the course that was initially prescribed in the ED. 7. Sertraline 50 mg p.o. daily. 8. Valacyclovir 1000 mg p.o. t.i.d. 9. Vimpat 100 mg p.o. b.i.d. 10. Coumadin 5 mg p.o. daily. Thank you for allowing us to participate in this patient's care. Discharge time spent, 35 minutes. Job ID: [id number]
[2020-04-17 15:00] VITALS: BP 124/67; TEMP 98.7
[2020-04-17] MEDS: Warfarin Sodium 5 MG TAB PO SCH (16:16)
== END 2020-04-17 17:29 | disposition home or self-care (01) ==
LOC: ERS 04:02 → ERHOLD 05:09 → 2SE 11:00
PROVIDERS: ADMIT Family Medicine; ATTEND Family Medicine
DX: R41.82 Altered mental status, unspecified (principal); N30.00 Acute cystitis without hematuria; G40.909 Epilepsy, unspecified, not intractable, without status epilepticus; G35 Multiple sclerosis; K21.9 Gastro-esophageal reflux disease without esophagitis; F41.9 Anxiety disorder, unspecified; F32.9 Major depressive disorder, single episode, unspecified; G51.0 Bell's palsy; Z86.711 Personal history of pulmonary embolism; Z87.820 Personal history of traumatic brain injury; Z79.01 Long term (current) use of anticoagulants; Z79.52 Long term (current) use of systemic steroids; Z79.899 Other long term (current) drug therapy; Z88.0 Allergy status to penicillin; Z88.8 Allergy status to other drugs, medicaments and biological substances; Z20.828 Contact with and (suspected) exposure to other viral communicable diseases
CPT/HCPCS: 70551; 80048; 80177; 84146; 84484; 85025; 85610 ×2; 85652; 86140; 87086; 93306; 93880; 95712; 95816; 95819; 95957; 96365; 96366; 96375; 97116; 97139 ×2; 99285; U0003; 36415; 87635; 96361; 96376; G0378; J0696; J3370; J3490; J7512; J7517; S0028

== ENCOUNTER 2022-10-10 16:22 | Observation (INO) | payer MEDICARE ==
[~2022-10-10 16:22] MED LIST: Iopamidol-370 76% 500 ML MDV (1 ML CHARGE) ONE
[2022-10-10] MEDS ORDERED: levETIRAcetam 500 MG/5 ML VIAL ONE (16:29)
[2022-10-10] MEDS ORDERED: LORazepam 2 MG/ML SYR.(CARPUJECT) ONE (16:31)
[2022-10-10 17:06] LABS: #Monocytes 0.4 thou/uL (0.11-0.59); #Neutrophils 2.6 thou/uL (1.40-6.50); %Basophils 0.6 % (0.0-1.0); %Eosinophils 0.9 % (0.0-10.0); %Lymphocytes 40.1 % (21.0-51.0); %Monocytes 7.1 % (0.0-10.0); %Neutrophils 51.2 % (42.0-75.0); Hemoglobin 13.7 g/dL (12.0-16.0); Mean Corpuscular HGB CONC 36.1 g/dL (32.0-36.0); Mean Corpuscular Hemoglobin 31.2 pg (27.0-31.0); Mean Corpuscular Volume 86.5 fl (78.0-98.0); Mean Platelet Volume 7.4 fL (7.4-10.4); Platelet Count 151 10x3/uL (130-400); RBC Distribution Width 11.9 % (11.5-14.5); Red Blood Cell (RBC) Count 4.37 mill/uL (4.20-5.40)
[2022-10-10 17:18] LABS: INR-International Normal Ratio 3.1; PTT 36.6 sec (22.9-36.1); Prothrombin Time 33.7 sec (12.0-14.7)
[2022-10-10 17:33] LABS: ALT (SGPT) 16 U/L (8-55); AST (SGOT) 17 U/L (5-34); Alkaline Phosphatase 71 U/L (40-110); Anion Gap 14 mmol/L (10-20); BUN (Urea Nitrogen) 13 mg/dL (9.8-20.1); Bilirubin, Total 0.4 mg/dL (0.2-1.2); Calc. Creatinine Clearance 0 mL/min (70-130); Calcium 8.6 mg/dL (7.8-10.44); Carbon Dioxide 21 mmol/L (22-29); Chloride 112 mmol/L (98-107); Estimated GFR 88; Globulin 3.1 g/dL (2.4-3.5); Glucose 116 mg/dL (70-105); Potassium 3.8 mmol/L (3.5-5.1); Protein, Total 7.1 g/dL (6.0-8.3); Sodium 143 mmol/L (136-145)
[2022-10-10] MEDS ORDERED: Lorazepam 2 MG/ML VIAL SLOW IVP PRN (23:06)
[2022-10-10] MEDS ORDERED: Ondansetron PF 4 MG/2 ML Vial IVP PRN (23:06)
[2022-10-10] MEDS ORDERED: Acetaminophen 650 MG Suppository PR PRN (23:06)
[2022-10-10 23:08] LABS: Acetaminophen Less than 10.0 mcg/mL (10.0-30.0); Alcohol Less than 10 mg/dL (Less than 10); Salicylate Less than 8.0 mg/dL (15.0-30.0)
[2022-10-10] MEDS ORDERED: Lactated Ringer's 1,000 ML IV SCH (23:15)
[2022-10-10 23:17] LABS: Actual Bicarbonate (HCO3v) 20 mEq/L (22-28); Base Excess -6.3 mEq/L (-2.0 to +3.0); Chloride (VBG) 105 mmol/L (98-106); Hemoglobin (Hb) 13.8 g/dL (11.7-16.0); Potassium (VBG) 3.77 mmol/L (3.70-5.30); Sodium 140.4 mmol/L (133-146); pH (venous) 7.31 (7.32-7.43)
[2022-10-10 23:44] LABS: Bacteria/HPF 4+ HPF (None Seen); Bilirubin Negative (Negative); Blood, Urine Negative (Negative); Clarity Turbid (Clear); Glucose, Urine (Dipstick) Normal (Negative); Ketone, Urine Negative (Negative); Leukocyte Negative Leu/uL (Negative); Nitrite 2+ (Negative); Protein, Urine (Dipstick) Negative (Neg-Trace); RBC/HPF 0-3 HPF (0-3); Specific Gravity, Urine 1.044 (1.002-1.036); Squamous Epithelial 0-3 HPF (0-3); Urobilinogen Normal mg/dL (Less than 2); WBC/HPF None Seen HPF (0-3)
[2022-10-11] MEDS ORDERED: Lorazepam 2 MG/ML VIAL SLOW IVP PRN (00:17)
[2022-10-11] MEDS ORDERED: Acetaminophen 650 MG Suppository PR PRN (00:18)
[2022-10-11] MEDS ORDERED: Ondansetron PF 4 MG/2 ML Vial IVP PRN (00:18)
[2022-10-11 00:27] VITALS: BMI 26.0
[2022-10-11] MEDS ORDERED: Lactated Ringer's 1,000 ML IV SCH (00:30)
[2022-10-11] MEDS: cefTRIAXone\\ROCEPHIN 1 GM in Sodium Chloride 0.9% 100 ML IVPB SCH (01:02)
[2022-10-11] MEDS: Sodium Chloride 0.9% 1,000 ML IV SCH ×3 (01:02→22:17)
[2022-10-11 04:32] LABS: #Monocytes 0.6 thou/uL (0.11-0.59); #Neutrophils 5.2 thou/uL (1.40-6.50); %Basophils 0.1 % (0.0-1.0); %Eosinophils 0.3 % (0.0-10.0); %Lymphocytes 25.4 % (21.0-51.0); %Monocytes 8.2 % (0.0-10.0); Hemoglobin 12.6 g/dL (12.0-16.0); Mean Corpuscular HGB CONC 33.7 g/dL (32.0-36.0); Mean Corpuscular Hemoglobin 29.2 pg (27.0-31.0); Mean Corpuscular Volume 86.7 fl (78.0-98.0); Mean Platelet Volume 7.4 fL (7.4-10.4); Platelet Count 144 10x3/uL (130-400); RBC Distribution Width 11.7 % (11.5-14.5); Red Blood Cell (RBC) Count 4.31 mill/uL (4.20-5.40); White Blood Cell (WBC) Count 7.9 10x3/uL (4.8-10.8)
[2022-10-11] MEDS ORDERED: levETIRAcetam 500 MG/5 ML VIAL SLOW IVP SCH ×4 (05:00→21:00)
[2022-10-11 05:15] LABS: Anion Gap 11 mmol/L (10-20); BUN (Urea Nitrogen) 10 mg/dL (9.8-20.1); Calc. Creatinine Clearance 118 mL/min (70-130); Calcium 8.8 mg/dL (7.8-10.44); Carbon Dioxide 20 mmol/L (22-29); Chloride 112 mmol/L (98-107); Estimated GFR 106; Glucose 98 mg/dL (70-105); Potassium 3.5 mmol/L (3.5-5.1); Sodium 139 mmol/L (136-145)
[2022-10-11 08:35] LABS: Amphetamine Not Detected (NotDetected); Barbiturates Screen Not Detected (NotDetected); Benzodiazepine Screen Detected (NotDetected); Cocaine Metabolite Screen Not Detected (NotDetected); Methadone Not Detected (NotDetected); Methamphetamine Not Detected (NotDetected); Opiate Screen Not Detected (NotDetected); Oxycodone Screen Not Detected (NotDetected); Phencyclidine (PCP) Not Detected (NotDetected); THC/Cannabinoid Screen Not Detected (NotDetected); Tricyclic Screen Not Detected (NotDetected)
[2022-10-11] MEDS: Baclofen 10 MG TAB PO SCH (11:54)
[2022-10-11] MEDS: levETIRAcetam 500 MG TAB PO SCH (22:18)
[2022-10-11] MEDS: Zonisamide 100 MG CAP PO SCH (22:18)
[2022-10-11] MEDS: Mycophenolate 250 MG CAP PO SCH (22:18)
[2022-10-12] MEDS: cefTRIAXone\\ROCEPHIN 1 GM in Sodium Chloride 0.9% 100 ML IVPB SCH (00:39)
[2022-10-12] MEDS: Sodium Chloride 0.9% 1,000 ML IV SCH (00:39)
[2022-10-12 07:11] LABS: INR-International Normal Ratio 1.6; Prothrombin Time 19.3 sec (12.0-14.7)
[2022-10-12] MEDS: Mycophenolate 250 MG CAP PO SCH ×2 (07:51→20:43)
[2022-10-12] MEDS: Baclofen 10 MG TAB PO SCH (07:52)
[2022-10-12] MEDS: levETIRAcetam 500 MG TAB PO SCH ×2 (07:52→20:42)
[2022-10-12] MEDS: Sertraline 25 MG TAB PO SCH (07:52)
[2022-10-12] MEDS ORDERED: Warfarin Sodium 5 MG TAB PO SCH (17:00)
[2022-10-12] MEDS: Zonisamide 100 MG CAP PO SCH (20:42)
[2022-10-13] MEDS: cefTRIAXone\\ROCEPHIN 1 GM in Sodium Chloride 0.9% 100 ML IVPB SCH (01:06)
[2022-10-13 05:26] LABS: INR-International Normal Ratio 1.2; Prothrombin Time 15.5 sec (12.0-14.7)
[2022-10-13 08:36] LABS: Hemoglobin 14.1 g/dL (12.0-16.0); Platelet Count 167 10x3/uL (130-400)
[2022-10-13] MEDS: Mycophenolate 250 MG CAP PO SCH ×2 (09:58→20:15)
[2022-10-13] MEDS: levETIRAcetam 500 MG TAB PO SCH ×2 (09:58→20:15)
[2022-10-13] MEDS: Sertraline 25 MG TAB PO SCH (09:59)
[2022-10-13] MEDS: Baclofen 10 MG TAB PO SCH (09:59)
[2022-10-13] MEDS ORDERED: Warfarin Sodium 7.5 MG TAB PO SCH (17:00)
[2022-10-13] MEDS: Zonisamide 100 MG CAP PO SCH (20:15)
[2022-10-13] MEDS ORDERED: Polyethylene Glycol 3350 17 GM Packet PO SCH (21:15)
[2022-10-14 05:13] LABS: INR-International Normal Ratio 1.2; Prothrombin Time 15.4 sec (12.0-14.7)
[2022-10-14] MEDS: Mycophenolate 250 MG CAP PO SCH (08:28)
[2022-10-14] MEDS: Baclofen 10 MG TAB PO SCH (08:28)
[2022-10-14] MEDS: levETIRAcetam 500 MG TAB PO SCH (08:29)
[2022-10-14] MEDS: Sertraline 25 MG TAB PO SCH (08:30)
[2022-10-14] MEDS ORDERED: Senokot 8.6 MG TAB PO SCH (08:45)
[2022-10-14] MEDS ORDERED: Polyethylene Glycol 3350 17 GM Packet PO SCH (09:00)
[2022-10-14 12:02] VITALS: BP 114/55; TEMP 97.5
== END 2022-10-14 13:00 ==
LOC: ERS 16:22 → 2NO 22:51 → ERS 23:31
PROVIDERS: ADMIT Family Medicine; ATTEND Family Medicine
DX: G40.409 Other generalized epilepsy and epileptic syndromes, not intractable, without status epilepticus (principal); N39.0 Urinary tract infection, site not specified; B96.20 Unspecified Escherichia coli [E. coli] as the cause of diseases classified elsewhere; K59.00 Constipation, unspecified; R73.03 Prediabetes; G35 Multiple sclerosis; Z86.69 Personal history of other diseases of the nervous system and sense organs; Z86.711 Personal history of pulmonary embolism; Z86.718 Personal history of other venous thrombosis and embolism; Z87.820 Personal history of traumatic brain injury; Z79.01 Long term (current) use of anticoagulants; Z79.899 Other long term (current) drug therapy; Z88.0 Allergy status to penicillin; Z88.8 Allergy status to other drugs, medicaments and biological substances; Z98.890 Other specified postprocedural states; Z20.822 Contact with and (suspected) exposure to COVID-19
CPT/HCPCS: 70450; 70551; 74177; 80048; 80053; 80306; 80307; 82805; 85014; 85018; 85025 ×2; 85049; 85610 ×4; 85730; 87040; 87077; 87086; 87186; 93005; 96374; 96375 ×2; 96376 ×3; 97110 ×2; 97116 ×3; 97530; 97535; 99285; G0378 ×5; J1953 ×2; J2060; U0003; U0005; 36415; 81003; 81015; J0696; J3490; J7050; J7120; J7517; Q9967